=== PATIENT | female | born 1970 | race Caucasian/White ===

== ENCOUNTER 2016-06-13 08:05 | Emergency (ER) | payer OTHER ==
[~2016-06-13] VITALS: Ht 157.5 cm; Wt 109.1 kg
[~2016-06-13 08:05] MED LIST: CHOL400T PO; HYDR-3090 PO; HYDR25TA4 PO; ONDA4TAB6 PO; OXYC-474 PO; SULF1TAB7 PO; TAMS0.4C98 PO
[2016-06-13 08:10] VITALS: BP 211/94; PULSE 77; RESP 16; O2SAT 99
--- NOTE | 2016-06-13 08:28 | ED.REPORT ---
HPI-Chest Pain 40 and Over Date of Service Jun 13, 2016 ED Provider: Suman Maher MD The patient is a 46 year old female who presents to the ED due to chest pain onset at 0630 after receiving some bad news. Patient was terminated from her job she has worked for 20 years, began crying, and started experiencing chest pain. She was in the car and reclined her seat back to try to relieve her symptoms. She c/o associated SOB. The pain is constant at 7/10, it does not dissipate or decrease in severity. She has never experienced this type of discomfort previously. Pt is tearful and anxiously reports that she's, "been having a bad year." Her grandfather had CHF and her mother last month from heart disease. She denies edema and chest discomfort with exertion. Her blood pressure normally runs 160-175. Nursing Notes Stated Complaint: CHEST PAIN Chief Complaint: Chest Pain Nursing Notes Reviewed: Yes ([employer], meds not reconciled) Allergies: Coded Allergies: ciprofloxacin (Verified Allergy, Intermediate, Hives, 03/01/16) Penicillins (Verified Allergy, Unknown, UNKNOWN (HAS HAD BOTH ANCEF & KEFZOL IV IN PAST W/O PROBS), 03/01/16) Scheduled Captopril (Captopril) 25 Mg Tablet 25 MG PO BID Labetalol (Labetalol) 100 Mg Tablet 100 MG PO BID Potassium Citrate ER (Potassium Citrate ER) 5 Meq Tablet Unknown Dose PO BID TAKE WITH FOOD Scheduled PRN Lorazepam (Lorazepam) 1 Mg Tablet 1 MG PO BID PRN PRN For Anxiety General Time Seen by MD: 08:20 Chief Complaint Chest pain Hx Obtained From: Patient Arrived By: Walk-in Sudden in Onset?: Yes Onset Occurred: 1 - 4 hours ago Symptom Duration: Since onset Location: : Chest left Quality: Painful, Pressure Radiation: : Does not radiate Severity: Current: Pain level 7 out of 10 Associated with: Reports: Shortness of Breath Recent Healthcare: No recent doctor visit, No recent hospitalization Similar Sx Previous: No Past Medical History Past Medical History Notes: Admitted March 2016 for pyelonephritis When cystoscopy, stent removal, left uterus OP in-stent reinsertion 02/22/[address] Skelton Past Medical History Nephrolithiasis w/ s/p lithotripsy Non-functional right kidney due to previous stones Possible history of Hepatitis C Acute kidney injury with sepsis during admission March 2016, baseline creatinine 1.5 bumped to 3.56 with hyperkalemia, but resolved and returned to baseline Reports: Hypertension Reports: Urinary tract infection Past Surgical History C-sections x4 lithrotripsy (multiple), Ureteral stent Reports: Tubal ligation Family History Noncontributory Smoking History Former Smoker Social History Alcohol Use: "Social" Drug Use: Denies drug use Other Social History: Good social support, Local resident Occupation lives with partner, 02/04/2016 Ambulatory Status Independent Review of Systems Respiratory: Reports: Shortness of breath Cardiovascular: Reports: Chest pain, Denies: Edema Psychiatric: Reports: Anxiety, Stress Complete sys rev & neg: except as marked. Physical Exam Initial Vital Signs Vital Signs (First) Date Time Temp Pulse Resp B/P Pulse Ox O2 Delivery O2 Flow Rate FiO2 06/13/16 08:10 36.5 77 16 211/94 99 Room Air Initial VS: Reviewed, Vital signs abnormal (HTN) Head / Eyes: Atraumatic, Normocephalic, PERRL ENT: Mucous membranes moist, Conjunctiva normal, No scleral icterus Neck: Supple, Non-tender, Full range of motion Back: No CVA tenderness Extremities: Vascular intact, Neuro intact, No swelling, No tenderness Skin: Warm, Dry, No cyanosis Neurologic: Alert General/Constitutional: Awake Behavior: Positive: Anxious, Tearful Appearance / Presentation: Positive: Obese Respiratory / Chest: Atraumatic, Breath sounds NL, No respiratory distress Cardiovascular: Heart rate NL, Regular rhythm, Heart sounds NL Abdomen: Atraumatic, Soft, Non-tender Abnormal Mood/Affect: Positive: Anxious Interpretation & Diagnostics Lab Results Interpretation Result Diagram: 06/13/16 0845 06/13/16 0845 Test 06/13/16 08:45 06/13/16 10:15 White Blood Count 7.6th/mm3 (3.8-10.1) Red Blood Count 4.24mil/mm3 (3.90-5.20) Hemoglobin 9.5g/dL (12.0-15.6) Hematocrit 31.7% (35.0-46.0) Mean Corpuscular Volume 74.8fL (81-100) Mean Corpuscular Hemoglobin 22.4pg (27.0-35.0) Mean Corpuscular Hemoglobin Concent 30.0% (32.0-37.0) Red Cell Distribution Width 16.6% (12.3-15.4) Platelet Count 328bil/L (150-400) Neutrophils (%) (Auto) 50.0% (40-74) Lymphocytes (%) (Auto) 38.6% (14-46) Monocytes (%) (Auto) 6.2% (4-12) Eosinophils (%) (Auto) 4.2% (0-5) Basophils (%) (Auto) 0.7% (0-3) Sodium Level 141mEq/L (134-144) Potassium Level 4.3mEq/L (3.5-5.2) Chloride Level 106mEq/L (97-108) Carbon Dioxide Level 20mmol/L (18-29) Blood Urea Nitrogen 24mg/dL (6-24) Creatinine 0.84mg/dL (0.57-1.00) Estimat Glomerular Filtration Rate 104mL/min (>59) Glucose Level 95mg/dL (60-99) Calcium Level 9.0mg/dL (8.5-10.1) Magnesium Level 2.0mg/dL (1.6-2.6) Total Bilirubin 0.2mg/dL (0.0-1.2) Aspartate Amino Transf (AST/SGOT) 40U/L (0-50) Alanine Aminotransferase (ALT/SGPT) 37U/L (0-32) Alkaline Phosphatase 83U/L (25-150) Total Protein 7.0g/dL (6.4-8.4) Albumin 3.6g/dL (3.4-5.0) Troponin T 0.010ug/L (0.0-0.011) Lab Results Interpretation: CBC normal CMP normal Troponin negative ECG Interpretation ECG Interpretation: ventricular premature complex poor R-wave regression anteriorly Time: 08:24 Interpreted by: ED physician Normal ECG Interpretation: Normal ECG w/ rate of... (66) X-Ray Chest Interpretation Chest Xray Interpretation: IMPRESSION: No acute cardiopulmonary disease process Dictated by: Emily Baez MD, PhD on 06/13/2016 at 10:07 Approved by: Emily Baez MD, PhD on 06/13/2016 at 10:07 View: Portable Interpretation / Wet Read by: Interpret - Radiologist Re-Eval/Medical Decision Med Decision/Clinical Course This is a 46-year-old female who presents the emergency department for an episode of chest discomfort that started after being told she had been fired from her 20-year-old job. In tears and uncomfortable. She has a history of chronic hypertension reports her blood pressures have been running in the 160s to 170s so she was recently started on blood pressure medicine, she is hypertensive on initial evaluation. He has no previous history of heart disease. She is anxious and tearful, but otherwise has a normal physical exam. Her EKG is without findings of acute ischemia or dysrhythmia. Work and it initial troponin negative. His were obtained and apart because of the severe hypertension but this resolved she felt better. She did receive a dose of lorazepam which helped. Overall clinical presentation is low risk for an acute coronary syndrome. Indications serial enzymes or additional testing are warranted at this time. The patient's high blood pressures improved, but it was explained she will continue need to follow with her PCP to determine if additional changes to her regimen may be warranted. The patient is being discharged in improved condition , I have written for #10 lorazepam for when necessary use. Routine precautions and discharge instructions reviewed. Source of Hx: Old records Time of Eval: 11:28 Patient Status: Condition improved, Pain improved Re-Evaluation/Progress Note: Pt rechecked. Imaging results are completely normal. Plan for discharge. Will send home with pain medication. Differential Diagnosis: Positive: Chest pain, acute, Negative: Acute coronary syndrome, Acute myocardial infarct, Dysrhythmia, Esophageal rupture, Gun shot wound chest, Pleurisy, Pneumonia, Pneumothorax, Pulmonary edema, Pulmonary embolism, Rib fracture, Stab wound chest Counseled Regarding: Diagnosis, Lab results, Need for follow-up, When/why to return to ED Discharge & Departure Primary Impression: Chest pain Chest pain type: unspecified Qualified Code: R07.9 - Chest pain, unspecified Additional Impressions: Acute stress reaction Elevated blood pressure Disposition: Home Discharge Condition All VS Reviewed: Yes Condition: Stable Additional Instructions: 1. Your tests in the emergency department were normal, and do not reveal any markers of a heart attack or other dangerous condition. 2. Activities as tolerated. 3. Continue to monitor your blood pressure home and work with her primary care physician. Your initial blood pressure was very elevated when he first arrived , but has improved-but still needs to be followed. 4. If needed you can take lorazepam 1 mg 1 tab up to twice a day. Note: This medication causes drowsiness-no driving or operating machinery for at least 4 hours after taking 5. Return if new or worsening symptoms Referrals: Stanford Jordan DO (PCP) Scribe Attestation Portion of this note were transcribed by Nevin Ocampo. I, Dr. Maher, personally performed the history, physical exam, and medical decision-making: I reviewed and confirmed the accuracy for the information in the transcribed note. Signed by: cindy Odell, 06/13/16 1150 copies to: Stanford Jordan Matthew F MD Jun 13, 2016 08:28 Nevin Ocampo Jun 13, 2016 08:35
[2016-06-13] MEDS ORDERED: CAPT25TA3 PO (08:43)
[2016-06-13] MEDS ORDERED: POTA5TAB2 PO (08:43)
[2016-06-13] MEDS ORDERED: LABE100T4 PO (08:43)
[2016-06-13 08:53] LABS: BASOPHILS % (AUTO) 0.7 % (0-3); EOSINOPHILS % (AUTO) 4.2 % (0-5); MONOCYTES % (AUTO) 6.2 % (4-12); Mean Corpuscular Hemoglobin 22.4 pg (27.0-35.0); Mean Corpuscular Volume 74.8 fL (81-100); Platelet Count 328 bil/L (150-400)
[2016-06-13 09:25] VITALS: BP 177/63; PULSE 68; RESP 19; O2SAT 100
[2016-06-13 09:25] LABS: TROPONIN T 0.01 ug/L (0.0-0.011)
--- NOTE | 2016-06-13 10:09 | DRSVH ---
PROCEDURE: X-RAY CHEST ONE VIEW, PORTABLE ([id number]) INDICATIONS: CHEST PAIN TECHNIQUE: One view of the chest was acquired. COMPARISON: [facility], , CHEST 1VW (PORTABLE), 09/18/2012, 10:07. FINDINGS: Surgical changes and devices: None. Lungs and pleura: No pleural effusions or pneumothorax. Lungs are clear. Mediastinum: Mediastinal contours appear normal. Heart size is normal. Bones and chest wall: No suspicious bony lesions. Overlying soft tissues appear unremarkable. IMPRESSION: No acute cardiopulmonary disease process. Dictated by: Emily Baez MD, PhD on 06/13/2016 at 10:07 Approved by: Emily Baez MD, PhD on 06/13/2016 at 10:07
[2016-06-13] MEDS ORDERED: LidocaineVisc 2%:Antacid 1:1 10 mL Syringe PO ONE (10:10)
[2016-06-13] MEDS ORDERED: Alum-Mag Hydrox-Simeth 30 mL Suspension ONE (10:15)
[2016-06-13] MEDS ORDERED: LORA1TAB PO (11:36)
[2016-06-13 11:47] VITALS: BP 160/59; PULSE 74; RESP 18; O2SAT 97
== END 2016-06-13 11:54 | disposition home or self-care (01) ==
LOC: SED 08:05
DX: R07.9 Chest pain, unspecified (principal); F43.0 Acute stress reaction; I10 Essential (primary) hypertension; R06.02 Shortness of breath; Z87.440 Personal history of urinary (tract) infections; Z87.891 Personal history of nicotine dependence; Z88.0 Allergy status to penicillin; Z88.1 Allergy status to other antibiotic agents
CPT/HCPCS: 36415; 71010; 80053; 81025; 83735; 84484; 85025; 93005; 96374; 99285; J2060

== ENCOUNTER 2016-09-05 07:45 | Emergency (ER) | payer OTHER ==
[~2016-09-05] VITALS: Ht 158.8 cm; Wt 108.2 kg
[~2016-09-05 07:45] MED LIST changes: +CAPT25TA3 PO; -CHOL400T PO; -HYDR-3090 PO; -HYDR25TA4 PO; +LABE100T4 PO; +LORA1TAB PO; -ONDA4TAB6 PO; -OXYC-474 PO; +POTA5TAB2 PO; -SULF1TAB7 PO; -TAMS0.4C98 PO
[2016-09-05 07:47] VITALS: BP 179/83; PULSE 74; RESP 15; O2SAT 99
--- NOTE | 2016-09-05 07:55 | ED.REPORT ---
HPI-Chest Pain 40 and Over Date of Service Sep 05, 2016 ED Provider: Giana Davidson Patient is a 46 year old female with a hx of HTN who presents to the ED complaining of chest pressure that has gradually gotten worse since onset at 2330 last night while she was at work. Associated symptoms include waves of dizziness, headache (onset 3 days ago, resolved) and SOB. Her pain is currently a 5/10 and radiates to her throat. She denies nausea, vomiting, diaphoresis, numbness, weakness, abdominal pain, dysuria, edema, or any other symptoms. She had similar symptoms in May when she had an anxiety attack but reports that episode was more painful than pressure. She has not taken her labetalol yet this morning. She reports that she was recently diagnosed with "a little bit of an enlarged heart". Patient is having symptoms with PVC's. Nursing Notes Stated Complaint: DIZZY,SOB Chief Complaint: Chest Pain-Non Cardiac Nature Nursing Notes Reviewed: Yes Allergies: Coded Allergies: ciprofloxacin (Verified Allergy, Intermediate, Hives, 03/01/16) Penicillins (Verified Allergy, Unknown, UNKNOWN (HAS HAD BOTH ANCEF & KEFZOL IV IN PAST W/O PROBS), 03/01/16) Scheduled Captopril (Captopril) 25 Mg Tablet 25 MG PO BID Labetalol (Labetalol) 100 Mg Tablet 100 MG PO BID Potassium Citrate ER (Potassium Citrate ER) 5 Meq Tablet 5 MEQ PO BID TAKE WITH FOOD General Time Seen by MD: 07:55 Chief Complaint Chest pressure Hx Obtained From: Patient Arrived By: Walk-in Sudden in Onset?: Yes Onset Occurred: 5 - 8 hours ago Symptom Duration: Since onset Risk Factors )( CAD Risk Stratification HypertensionNo Smoking Risk factors reviewed )( TAD Risk Stratification HypertensionNo Risk factors reviewed )( PE Risk Stratification No , No , No Previous PE Risk factors reviewed Past Medical History Past Medical History Notes: Admitted March 2016 for pyelonephritis When cystoscopy, stent removal, left uterus OP in-stent reinsertion 02/22/[address] Skelton Past Medical History Prediabetic Nephrolithiasis w/ s/p lithotripsy Non-functional right kidney due to previous stones Possible history of Hepatitis C Acute kidney injury with sepsis during admission March 2016, baseline creatinine 1.5 bumped to 3.56 with hyperkalemia, but resolved and returned to baseline Reports: Hypertension Reports: Urinary tract infection Past Surgical History C-sections x4 lithrotripsy (multiple), Ureteral stent Reports: Tubal ligation Family History Noncontributory Smoking History Former Smoker Social History Alcohol Use: "Social" Drug Use: Denies drug use Other Social History: Good social support, Local resident Occupation lives with partner, 02/04/2016 Ambulatory Status Independent Review of Systems Respiratory: Reports: Shortness of breath Cardiovascular: Reports: Chest pain (with radiation to throat ), Denies: Edema GI: Denies: Abdominal pain, Nausea, Vomiting Skin: Denies Diaphoresis Neurologic: Reports: Dizziness, Denies: Numbness, Weakness Complete sys rev & neg: except as marked. Female: Denies: Dysuria Physical Exam Initial Vital Signs Vital Signs (First) Date Time Temp Pulse Resp B/P Pulse Ox O2 Delivery O2 Flow Rate FiO2 09/05/16 07:47 36.4 74 15 179/83 99 Room Air Initial VS: Reviewed, Vital signs abnormal Head / Eyes: Atraumatic, Normocephalic Neck: Full range of motion Skin: Warm, Dry Neurologic: Alert, Oriented, Nonfocal Psychiatric: Mood/affect normal, Behavior normal, Normal thought content General/Constitutional: Awake, Alert, Well developed Respiratory / Chest: Breath sounds NL, Breath sounds = bilat, No respiratory distress Cardiovascular: Heart rate NL, Regular rhythm Symptomatic with PVC's Abdomen: Soft, Non-tender Lower Extremity / Pelvis / MS: Non-tender, No edema Interpretation & Diagnostics Lab Results Interpretation Result Diagram: 09/05/16 0810 09/05/16 0810 Test 09/05/16 08:10 09/05/16 10:15 White Blood Count 8.6th/mm3 (3.8-10.1) Red Blood Count 3.97mil/mm3 (3.90-5.20) Hemoglobin 8.2g/dL (12.0-15.6) Hematocrit 28.0% (35.0-46.0) Mean Corpuscular Volume 70.5fL (81-100) Mean Corpuscular Hemoglobin 20.7pg (27.0-35.0) Mean Corpuscular Hemoglobin Concent 29.3% (32.0-37.0) Red Cell Distribution Width 18.8% (12.3-15.4) Platelet Count 368bil/L (150-400) Neutrophils (%) (Auto) 51.3% (40-74) Lymphocytes (%) (Auto) 34.0% (14-46) Monocytes (%) (Auto) 7.4% (4-12) Eosinophils (%) (Auto) 6.3% (0-5) Basophils (%) (Auto) 0.8% (0-3) Sodium Level 138mEq/L (134-144) Potassium Level 4.2mEq/L (3.5-5.2) Chloride Level 103mEq/L (97-108) Carbon Dioxide Level 21mmol/L (18-29) Blood Urea Nitrogen 24mg/dL (6-24) Creatinine 0.97mg/dL (0.57-1.00) Estimat Glomerular Filtration Rate 88mL/min (>59) Glucose Level 116mg/dL (60-99) Calcium Level 9.2mg/dL (8.5-10.1) Magnesium Level 1.9mg/dL (1.6-2.6) Total Bilirubin 0.3mg/dL (0.0-1.2) Aspartate Amino Transf (AST/SGOT) 61U/L (0-50) Alanine Aminotransferase (ALT/SGPT) 53U/L (0-32) Alkaline Phosphatase 90U/L (25-150) Pro-B-Type Natriuretic Peptide 255.7pg/mL (0-249) Total Protein 7.4g/dL (6.4-8.4) Albumin 3.8g/dL (3.4-5.0) Troponin T 0.010ug/L (0.0-0.011) ECG Interpretation ECG Interpretation: Sinus rate 72 normal intervals and axis poor R wave progression no ST,T changes similar to prior june 13 2016 Time: 08:04 Interpreted by: ED physician X-Ray Chest Interpretation Chest Xray Interpretation: IMPRESSION: Negative chest. No acute cardiopulmonary process is evident. Dictated by: Hola Jefferson M.D. on 09/05/2016 at 8:06 Approved by: Hola Jefferson M.D. on 09/05/2016 at 8:06 View: Portable, 1 view Interpretation / Wet Read by: Interpret - Radiologist Re-Eval/Medical Decision Med Decision/Clinical Course The patient presents with chest pain that started at 10 PM, her other complaint was dizziness. She stated she was feeling dizzy when she had some bigeminy during her examination and stated there was were the symptoms she was feeling. As far as her chest pain has been constant and gradually got worse. Given duration of pain with no acute EKG findings and normal troponins she is ruled out for CA. The patient was feeling improved during her stay here was discharged home. Additional differential diagnoses considered were pneumonia, pulmonary embolus, esophageal spasm, bronchospasm, and pancreatitis. The patient was hypertensive upon arrival here however she had not taken her normal blood pressure medication. Her blood pressure did improve while here. Time of Eval: 09:41 Patient Status: Condition improved Re-Evaluation/Progress Note: Rechecked patient. She is feeling better. Time of Eval: 11:29 Patient Status: Condition improved Re-Evaluation/Progress Note: Rechecked pt who is much better. Discussed plan for discharge. Patient understands and agrees with plan. All questions addressed at this time. Counseled Regarding: Diagnosis, Lab results, Need for follow-up, When/why to return to ED Discharge & Departure Primary Impression: Chest pain Chest pain type: unspecified Qualified Code: R07.9 - Chest pain, unspecified Additional Impressions: PVCs (premature ventricular contractions) Anemia Anemia type: unspecified type Qualified Code: D64.9 - Anemia, unspecified Disposition: Home Discharge Condition All VS Reviewed: Yes Condition: Stable Additional Instructions: Thank you for entrusting us with your care. It is unclear why you are having PVC's but there are no concerning findings at this time. Testing indicates that you have not had a heart attack. You should follow up with your primary doctor for your anemia. If your symptoms continue. you should have a stress test. Return to the emergency department if you experience increasing SOB, increasing pain, fever, or any other new or concerning symptoms. Referrals: Stanford Jordan DO (PCP) Scribe Attestation Portions of this note were transcribed by Sabina Espinoza. I, Dr. Davidson personally performed the history, physical exam and medical decision-making; I reviewed and confirmed the accuracy of the information in the transcribed note. Signed by: Sabina Espinoza 09/03/16, 1129 copies to: Stanford Jordan Jena M MD Sep 05, 2016 07:55 SABINA ESPINOZA Sep 05, 2016 08:06
[2016-09-05] MEDS ORDERED: 0.9% Sodium Chloride 1,000 ML IV ONE (08:20)
[2016-09-05 08:27] LABS: BASOPHILS % (AUTO) 0.8 % (0-3); EOSINOPHILS % (AUTO) 6.3 % (0-5); MONOCYTES % (AUTO) 7.4 % (4-12); Mean Corpuscular Hemoglobin 20.7 pg (27.0-35.0); Mean Corpuscular Volume 70.5 fL (81-100); NEUTROPHILS % (AUTO) 51.3 % (40-74); Platelet Count 368 bil/L (150-400)
[2016-09-05 08:52] LABS: TROPONIN T 0.01 ug/L (0.0-0.011)
[2016-09-05 09:03] LABS: Magnesium 1.9 mg/dL (1.6-2.6)
--- NOTE | 2016-09-05 09:08 | DRSVH ---
PROCEDURE: X-RAY CHEST ONE VIEW, PORTABLE ([id number]) INDICATIONS: chest pain TECHNIQUE: One view of the chest was acquired. COMPARISON: [facility], CR, XR CHEST 1VW (PORTABLE), 06/13/2016, 9:02. FINDINGS: Surgical changes and devices: None. Lungs and pleura: No pleural effusions or pneumothorax. Lungs are clear. Mediastinum: Mediastinal contours appear normal. Heart size is normal. Bones and chest wall: No suspicious bony lesions. Overlying soft tissues appear unremarkable. IMPRESSION: Negative chest. No acute cardiopulmonary process is evident. Dictated by: Hola Jefferson M.D. on 09/05/2016 at 8:06 Approved by: Hola Jefferson M.D. on 09/05/2016 at 8:06
[2016-09-05 09:48] VITALS: BP 152/54; PULSE 70; RESP 16; O2SAT 99
[2016-09-05 11:27] VITALS: BP 150/58; PULSE 68; RESP 16; O2SAT 97
[2016-09-05 11:46] VITALS: BP 150/58; PULSE 68; RESP 16; O2SAT 97
== END 2016-09-05 11:48 | disposition home or self-care (01) ==
LOC: SED 07:45
DX: R07.9 Chest pain, unspecified (principal); I49.3 Ventricular premature depolarization; D64.9 Anemia, unspecified; I10 Essential (primary) hypertension; R73.09 Other abnormal glucose; Z87.442 Personal history of urinary calculi; Z87.440 Personal history of urinary (tract) infections; Z87.891 Personal history of nicotine dependence; Z88.0 Allergy status to penicillin; Z88.1 Allergy status to other antibiotic agents
CPT/HCPCS: 36415; 71010; 80053; 83735; 83880; 84484; 85025; 90791; 93005; 96360; 99285; J7030

== ENCOUNTER 2016-12-16 21:02 | Emergency (ER) | payer OTHER ==
[~2016-12-16] VITALS: Ht 160 cm; Wt 109.5 kg
[~2016-12-16 21:02] MED LIST changes: -LORA1TAB PO
[2016-12-16 21:17] VITALS: BP 187/76; PULSE 72; RESP 16; O2SAT 100
--- NOTE | 2016-12-16 22:13 | ED.REPORT ---
HPI-General Illness Date of Service Dec 16, 2016 ED Provider: Dr. Narciso Velasco MD The patient is a 46 year female with a hx of nephrolithiasis, pyelonephritis, multiple previous lithotripsies, HTN, prediabetes, and right-sided kidney surgery presenting to the ED complaining of aching, left flank pain onset 10:00 this morning. Her current pain is similar to the pain she experienced during previous kidney stones, and rates it as a 6/10 severity with it being 9/10 at its worst. She claims that the pain radiates inferiorly during urination. She denies chest pain, neck pain, hematuria, dysuria, SOB, nausea, chills, fever, diarrhea, headache, nasal congestion, vaginal discharge, dizziness, skin rash, or vision changes. Nursing Notes Stated Complaint: LEFT KIDNEY STONE Chief Complaint: Female Abdominal Pain Nursing Notes Reviewed: Yes Allergies: Coded Allergies: ciprofloxacin (Verified Allergy, Intermediate, Hives, 12/16/16) Penicillins (Verified Allergy, Unknown, UNKNOWN (HAS HAD BOTH ANCEF & KEFZOL IV IN PAST W/O PROBS), 12/16/16) Scheduled Captopril (Captopril) 25 Mg Tablet 25 MG PO BID Labetalol (Labetalol) 100 Mg Tablet 100 MG PO BID Potassium Citrate ER (Potassium Citrate ER) 5 Meq Tablet 5 MEQ PO BID TAKE WITH FOOD Sulfamethoxazole/Trimeth 800-160 mg (Bactrim DS) 1 Each Tablet 1 TABLET PO BID General Time Seen by MD: 22:12 Chief Complaint Back pain (left flank pain) Hx Obtained From: Patient Arrived By: Walk-in Sudden in Onset?: Yes Onset Occurred: 13 - 16 hours ago Symptom Duration: Since onset Location: : Back (left flank) Quality: Aching Severity: Current: Pain level 6 out of 10 Severity: Maximum: Pain level 9 out of 10 Associated with: Denies: Chest pain, Dizziness, Fever, Headache, Nausea, Rash, Shortness of breath, Vision change Pertinent Negative: Pt denies other symptoms Recent Healthcare: No recent hospitalization, Recent doctor visit Similar Sx Previous: Yes Past Medical History Past Medical History Notes: Admitted March 2016 for pyelonephritis When cystoscopy, stent removal, left uterus OP in-stent reinsertion 02/22/[address] Skelton Past Medical History Prediabetic Nephrolithiasis w/ s/p lithotripsy Non-functional right kidney due to previous stones Possible history of Hepatitis C Acute kidney injury with sepsis during admission March 2016 Reports: Hypertension Reports: Urinary tract infection Past Surgical History C-sections x4 lithrotripsy (multiple), Ureteral stent Reports: Tubal ligation Family History Noncontributory Smoking History Former Smoker Social History Alcohol Use: "Social" Drug Use: Denies drug use Other Social History: Good social support, Local resident Occupation lives with partner, 02/04/2016 Ambulatory Status Independent Review of Systems Full Review of Systems Constitutional: Denies: Chills, Fever Eyes: Denies: Visual loss bilateral Ears / Nose / Throat: Denies: Nasal congestion Respiratory: Denies: Shortness of breath Cardiovascular: Denies: Chest pain GI: Denies: Diarrhea, Nausea Female: Denies: Hematuria, Vaginal discharge Musculoskeletal: Reports: Back pain (left flank) Skin: Denies Rash Neurologic: Denies: Dizziness, Headache Complete sys rev & neg: except as marked. Physical Exam Nursing note and vitals reviewed. Constitutional: Well-developed, well-nourished. Not diaphoretic. Head: Normocephalic and atraumatic. Mouth/Throat: Oropharynx is clear and moist. No oropharyngeal exudate. Eyes: EOM are normal. Pupils are equal, round, and reactive to light. Neck: Supple, no tracheal deviation. Cardiovascular: Normal rate, regular rhythm. Equal and intact distal pulses throughout. Pulmonary/Chest: Effort normal and breath sounds normal. No respiratory distress. Abdominal: Soft. No distension. There is no tenderness, rebound, or guarding. Bowel sounds present. Musculoskeletal: Range of motion grossly intact, moving all extremities. Left flank tenderness. Neurological: AOx3. Grossly nonfocal exam. Strength and sensation intact and equal to bilateral upper and lower extremities. Skin: Warm and dry, no rashes or pallor appreciated. Psychiatric: Appropriate mood and affect. Behavior appears normal. Vital Signs Vital Signs Date Time Temp Pulse Resp B/P Pulse Ox O2 Delivery O2 Flow Rate FiO2 12/17/16 00:29 36.5 60 21 178/78 97 Room Air 12/16/16 21:17 37.0 72 16 187/76 100 Room Air Interpretation & Diagnostics Lab Results Interpretation Result Diagram: 12/16/16222412/16/162224 Test 12/16/16 22:00 9/17/17 22:21 12/16/16 22:25 12/16/16 22:57 Hold Urine Received (Received) Urine Color Yellow (YELLOW) Urine Appearance Hazy (CLEAR,HAZY) Urine pH 7.0 (5.0-8.0) Urine Specific [place] 1.020 (1.003-1.035) Urine Protein 30mg/dL (NEG,TRACE) Urine Glucose (UA) Negativemg/dL (NEGATIVE) Urine Ketones Negativemg/dL (NEGATIVE) Urine Occult Blood Negative (NEGATIVE) Urine Nitrite Negative (NEGATIVE) Urine Bilirubin Negative (NEGATIVE) Urine Urobilinogen Normalmg/dL (NORMAL) Urine Leukocyte Esterase Negative (NEGATIVE) Urine RBC 0-2/hpf (0-2) Urine WBC 11-50/hpf (0-5) Urine Epithelial Cells Few/hpf (NONE-MOD) Urine Crystals None seen (NONE SEEN) Urine Bacteria Few/hpf (NONE-FEW) Urine Hyaline Casts None/lpf (NONE) Urine Granular Casts None seen (NONE SEEN) Urine Waxy Casts None seen (NONE SEEN) Urine Red Blood Cell Casts None seen (NONE SEEN) Urine White Blood Cell Casts None seen (NONE SEEN) Urine Mucus None seen (None Seen) Urine Trichomonas None seen (NONE SEEN) Urine Yeast None (NONE SEEN) Urinalysis Comment None Urine Culture Reflexed Indicated White Blood Count 8.3th/mm3 (3.8-10.1) Red Blood Count 5.01mil/mm3 (3.90-5.20) Hemoglobin 12.1g/dL (12.0-15.6) Hematocrit 39.0% (35.0-46.0) Mean Corpuscular Volume 77.8fL (81-100) Mean Corpuscular Hemoglobin 24.2pg (27.0-35.0) Mean Corpuscular Hemoglobin Concent 31.0% (32.0-37.0) Red Cell Distribution Width 27.4% (12.3-15.4) Platelet Count 219bil/L (150-400) Neutrophils (%) (Auto) 48.1% (40-74) Lymphocytes (%) (Auto) 36.5% (14-46) Monocytes (%) (Auto) 10.1% (4-12) Eosinophils (%) (Auto) 4.4% (0-5) Basophils (%) (Auto) 0.7% (0-3) Hematology Comments Prothrombin Time 9.4sec (8.1-12.5) Prothromb Time International Ratio 0.88ratio Sodium Level 140mEq/L (134-144) Potassium Level 3.9mEq/L (3.5-5.2) Chloride Level 104mEq/L (97-108) Carbon Dioxide Level 22mmol/L (18-29) Blood Urea Nitrogen 23mg/dL (6-24) Creatinine 1.00mg/dL (0.57-1.00) Estimat Glomerular Filtration Rate 85mL/min (>59) Glucose Level 88mg/dL (60-99) Calcium Level 9.5mg/dL (8.5-10.1) Magnesium Level 1.9mg/dL (1.6-2.6) Total Bilirubin 0.2mg/dL (0.0-1.2) Aspartate Amino Transf (AST/SGOT) 30U/L (0-50) Alanine Aminotransferase (ALT/SGPT) 31U/L (0-32) Alkaline Phosphatase 70U/L (25-150) Total Protein 7.4g/dL (6.4-8.4) Albumin 3.9g/dL (3.4-5.0) Lipase 57U/L (13-60) Lactic Acid Level 0.5mmol/L (0.4-2.0) CT Abd / Pelvis Interpretation IMPRESSION: Bilateral renal stones ranging from 3-5 mm in size. No hydronephrosis. This report was transmitted to the emergency room at 12/16/2016 - 10:51:06 PM PDT. Study type: Abdominal CT no contrast Interpretation / Wet Read by: Interpret - Radiologist Re-Eval/Medical Decision Med Decision/Clinical Course 46-year-old female presenting to the ED for evaluation of left flank pain. Pain feels similar to when she has had pyelonephritis in the past. No lower abdominal pain or tenderness to palpation, no abdominal tenderness otherwise, no rebound or guarding. The reason to suggest that she has an acute surgical abdomen, small bowel obstruction, or appendicitis. CBC and CMP grossly within normal limits. Lactic acid of 0.5. A CT scan was performed and does not demonstrate any ureterolithiasis, however does show bilateral renal stones ranging from 3-5 mm in size without evidence of hydronephrosis. Urinalysis demonstrates 11-50 white blood cells with no red blood cells. This may represent a mild urinary tract infection, and in the setting of her left flank pain and known history, I suspect that this may be pyelonephritis. We discussed inpatient versus outpatient treatment for this, and the patient would prefer to be discharged home with a perception for antibiotics and can follow- up with her PCP tomorrow. This seems reasonable given reassuring exam, workup here, no hydronephrosis, etc. Vital signs here reassuring. Plan discharge home with careful return precautions, follow-up tomorrow. Patient agreeable to the plan as stated, no further questions. Time of Eval: 00:05 Re-Evaluation/Progress Note: Patient rechecked. Discussed plan to discharge. Patient understands and agrees with plan. All questions addressed at this time. Counseled Regarding: Diagnosis, Lab results, Need for follow-up, When/why to return to ED Discharge & Departure Primary Impression: Nephrolithiasis Additional Impressions: UTI (urinary tract infection) Urinary tract infection type: site unspecified Hematuria presence: without hematuria Qualified Code: N39.0 - Urinary tract infection, site not specified Pyelonephritis Disposition: Home Discharge Condition All VS Reviewed: Yes Condition: Improved Patient Instructions: Kidney Infection (ED), Kidney Stones (ED), Urinary Tract Infection in Women (ED) Additional Instructions: You have been diagnosed with a urinary tract infection, kidney stones, and pyelonephritis. Please take the medication as prescribed. Also, please follow up with your regular doctor tomorrow to be reassessed and get in touch with urology. Return to the ED immediately if you develop fever, chills, worsening abdominal pain, lightheadedness, chest pain, or if there is anything else of concern to you. Referrals: NOPCP (PCP) Usman Carey MD Attestation Portions of this note were transcribed by Gypsy Lacey and Lexx Barreto. I, Dr. Velasco personally performed the history, physical exam and medical decision-making; I reviewed and confirmed the accuracy of the information in the transcribed note. Signed by: Dulce Hutson, 12/16/2016 Signed by: Dulce Sims, 12/16/16. copies to: Paco Carey MD, William B MD Dec 16, 2016 22:13 Dec 16, 2016 23:37 GYPSY LACEY Dec 17, 2016 00:28
[2016-12-16] MEDS ORDERED: 0.9% Sodium Chloride 1,000 ML IV ONE (22:17)
[2016-12-16] MEDS ORDERED: Ketorolac 15 mg/mL Inj IVPUSH ONE (22:20)
[2016-12-16] MEDS ORDERED: Ondansetron 2 mg/mL 2 mL Inj IVPUSH PRN (22:20)
[2016-12-16] MEDS ORDERED: HYDROmorphone 0.5 mg/0.5 mL iSecure Syringe IVPUSH PRN (22:20)
[2016-12-16 22:31] LABS: Mean Corpuscular Hemoglobin 24.2 pg (27.0-35.0); Mean Corpuscular Volume 77.8 fL (81-100)
[2016-12-16 22:38] LABS: APPEARANCE,URINE HAZY (CLEAR,HAZY); COLOR,URINE YELLOW (YELLOW)
[2016-12-16 22:39] LABS: OCCULT BLOOD,URINE NEGATIVE (NEGATIVE); UROBILINOGEN,URINE NORMAL (NORMAL)
[2016-12-16 22:53] LABS: INR 0.88 ratio
[2016-12-16 23:01] LABS: Magnesium 1.9 mg/dL (1.6-2.6)
[2016-12-16 23:03] LABS: BASOPHILS % (AUTO) 0.7 % (0-3); EOSINOPHILS % (AUTO) 4.4 % (0-5); MONOCYTES % (AUTO) 10.1 % (4-12); NEUTROPHILS % (AUTO) 48.1 % (40-74); Platelet Count 219 bil/L (150-400)
[2016-12-16] MEDS ORDERED: SULF1TAB7 PO (23:41)
[2016-12-17 00:29] VITALS: BP 178/78; PULSE 60; RESP 21; O2SAT 97
--- NOTE | 2016-12-17 07:48 | DRSVH ---
PROCEDURE: CT KUB ([id number]) INDICATIONS: abd pain, flank pain; hx of stones TECHNIQUE: Noncontrast 5 mm thick sections acquired from the diaphragms to the symphysis. 5 mm thick coronal an d sagittal reformats were then performed. For radiation dose reduction, the following was used: aut omated exposure control, adjustment of mA and/or kV according to patient size. COMPARISON: [facility], CT, CT KUB, 03/03/2016, 20:05. [facility], CT, CT K UB, 02/13/2016, 11:08. [facility], CT, CT KUB, 01/09/2016, 21:07. [facility], CT, CT KUB, 06/08/2015, 3:14. FINDINGS: Image quality: Excellent. Lung bases: Lung bases are clear. Heart size is normal. Urinary system: Nonobstructing bilateral renal calculi measuring up to 5 mm. No obstructing renal or ureteral calculi. No noncontrast evidence of solid renal mass. Bladder wall thickness is normal; no calcified bladder stones. Other solid organs: There is linear density in the gallbladder most consistent with milk of calcium o r very tiny calculi. No CT evidence of acute cholecystitis. The liver, pancreas, spleen, and adrenal glands are normal. Uterus is present. Peritoneum and bowel: Unenhanced bowel loops demonstrate normal wall thickness and caliber. No free fluid or air. Nodes and vessels: No retroperitoneal or mesenteric adenopathy by size criteria. Aorta and inferior vena cava are normal in caliber. Abdominal wall: No ventral hernias. Pelvis: No free pelvic fluid. No inguinal hernias or adenopathy. Bones: No suspicious bony lesions. No vertebral body compression fractures. IMPRESSION: 1. Multiple uncertain bilateral renal calculi measuring up to 5 mm. No obstructing renal or ureteral calculus. No hydronephrosis or ureterectasis. 2. Multiple nonobstructing bilateral renal calculi measuring up to 14 mm. 3. There are no discrepancies with the preliminary report. Dictated by: Nabil Morrow M.D. on 12/17/2016 at 7:35 Approved by: Nabil Morrow M.D. on 12/17/2016 at 7:46
== END 2016-12-17 00:31 | disposition home or self-care (01) ==
LOC: SED 21:02
DX: N39.0 Urinary tract infection, site not specified (principal); N12 Tubulo-interstitial nephritis, not specified as acute or chronic; N20.0 Calculus of kidney; I10 Essential (primary) hypertension; R73.03 Prediabetes; Z87.440 Personal history of urinary (tract) infections; Z96.0 Presence of urogenital implants; Z87.891 Personal history of nicotine dependence; Z88.0 Allergy status to penicillin; Z88.1 Allergy status to other antibiotic agents
CPT/HCPCS: 36415; 74176; 80053; 81000; 81025; 83605; 83690; 83735; 85025; 85610; 87086; 96361; 96374; 96375; 99285; J1170; J1885; J2405; J7030

== ENCOUNTER 2016-12-23 03:05 | Emergency (ER) | payer OTHER ==
[~2016-12-23] VITALS: Ht 160 cm; Wt 109.5 kg
[~2016-12-23 03:05] MED LIST changes: +SULF1TAB7 PO
[2016-12-23 03:10] VITALS: BP 180/85; PULSE 62; RESP 16; O2SAT 99
[2016-12-23 03:49] LABS: BASOPHILS % (AUTO) 0.9 % (0-3); EOSINOPHILS % (AUTO) 4.5 % (0-5); MONOCYTES % (AUTO) 8.8 % (4-12); Mean Corpuscular Volume 77.6 fL (81-100); NEUTROPHILS % (AUTO) 49.9 % (40-74); Platelet Count 308 bil/L (150-400)
[2016-12-23 04:15] LABS: Magnesium 1.9 mg/dL (1.6-2.6)
--- NOTE | 2016-12-23 04:30 | ED.REPORT ---
HPI-General Illness Date of Service Dec 23, 2016 ED Provider: Binh Winkler MD The pt is a 46 y/o female w/ a hx of nephrolithiasis, HTN, and UTIs presenting to the ED c/o L flank pain. Denies double vision, blurred vision, sore throat, chest pain, cough, vomiting, diarrhea, vaginal discharge, vaginal bleeding, lower extremity edema, or rash. She has taken Alleve for the pain. The pt was seen by Dr. Velasco 1 week ago for nephrolithiasis but was unable to hop picker her rx of Bactrim. Nursing Notes Stated Complaint: LOWER BACK PAIN Chief Complaint: L flank pain Nursing Notes Reviewed: Yes Allergies: Coded Allergies: ciprofloxacin (Verified Allergy, Intermediate, Hives, 12/16/16) Penicillins (Verified Allergy, Unknown, UNKNOWN (HAS HAD BOTH ANCEF & KEFZOL IV IN PAST W/O PROBS), 12/16/16) Scheduled Captopril (Captopril) 25 Mg Tablet 25 MG PO BID Labetalol (Labetalol) 100 Mg Tablet 100 MG PO BID Potassium Citrate ER (Potassium Citrate ER) 5 Meq Tablet 5 MEQ PO BID TAKE WITH FOOD Sulfamethoxazole/Trimeth 800-160 mg (Bactrim DS) 1 Each Tablet 1 TABLET PO BID General Time Seen by MD: 04:30 Chief Complaint Other (L flank pain ) Hx Obtained From: Patient Arrived By: Walk-in Sudden in Onset?: Yes Onset Occurred: 1 week ago Symptom Duration: Since onset Recent Healthcare: No recent hospitalization, Recent doctor visit Similar Sx Previous: Yes Past Medical History Past Medical History Notes: Admitted March 2016 for pyelonephritis When cystoscopy, stent removal, left uterus OP in-stent reinsertion 02/22/[address] Skelton Past Medical History Prediabetic Nephrolithiasis w/ s/p lithotripsy Non-functional right kidney due to previous stones Possible history of Hepatitis C Acute kidney injury with sepsis during admission March 2016 Reports: Hypertension Reports: Urinary tract infection Past Surgical History C-sections x4 lithrotripsy (multiple), Ureteral stent Reports: Tubal ligation Family History Noncontributory Smoking History Former Smoker Social History Alcohol Use: "Social" Drug Use: Denies drug use Other Social History: Good social support, Local resident Occupation lives with partner, 02/04/2016 Ambulatory Status Independent Review of Systems Full Review of Systems Eyes: Denies: Blurred bilateral, Diplopia Ears / Nose / Throat: Denies: Sore throat Respiratory: Denies: Non-productive cough Cardiovascular: Denies: Chest pain, Edema GI: Denies: Diarrhea, Vomiting Female: Reports: Flank pain (L sided ), Denies: Vaginal bleeding - abnl, Vaginal discharge Skin: Denies Rash Complete sys rev & neg: except as marked. Physical Exam Vital Signs Vital Signs Date Time Temp Pulse Resp B/P Pulse Ox O2 Delivery O2 Flow Rate FiO2 12/23/16 05:44 36.4 66 16 156/87 97 Room Air 12/23/16 03:10 36.7 62 16 180/85 99 Room Air Initial VS: Reviewed General/Constitutional: Well-developed, Well-nourished Head / Eyes: Atraumatic, Normocephalic, PERRL ENT: Mucous membranes moist, Conjunctiva normal, No scleral icterus Neck: Supple, Non-tender, Full range of motion Respiratory: Breath sounds normal, Clear to auscultation, No respiratory distress Cardiovascular: Regular rate & rhythm, Heart sounds normal, Intact distal pulses Extremities: Vascular intact, Neuro intact, No swelling, No tenderness Skin: Warm, Dry, No cyanosis Neurologic: Alert, Oriented, Nonfocal Psychiatric: Mood/affect normal, Behavior normal, Normal thought content Back: Full range of motion L CVA tenderness Interpretation & Diagnostics Lab Results Interpretation Result Diagram: 12/23/16 0340 12/23/16 0340 Test 12/23/16 03:30 12/23/16 03:40 Urine Color Yellow (YELLOW) Urine Appearance Hazy (CLEAR,HAZY) Urine pH 5.5 (5.0-8.0) Urine Specific [place] 1.030 (1.003-1.035) Urine Protein 100mg/dL (NEG,TRACE) Urine Glucose (UA) Negativemg/dL (NEGATIVE) Urine Ketones Negativemg/dL (NEGATIVE) Urine Occult Blood Negative (NEGATIVE) Urine Nitrite Negative (NEGATIVE) Urine Bilirubin Negative (NEGATIVE) Urine Urobilinogen Normalmg/dL (NORMAL) Urine Leukocyte Esterase Trace (NEGATIVE) Urine RBC 0-2/hpf (0-2) Urine WBC 11-50/hpf (0-5) Urine Epithelial Cells Moderate/hpf (NONE-MOD) Urine Crystals (NONE SEEN) Urine Bacteria Moderate/hpf (NONE-FEW) Urine Hyaline Casts None/lpf (NONE) Urine Granular Casts None seen (NONE SEEN) Urine Waxy Casts None seen (NONE SEEN) Urine Red Blood Cell Casts None seen (NONE SEEN) Urine White Blood Cell Casts None seen (NONE SEEN) Urine Mucus Present (None Seen) Urine Trichomonas None seen (NONE SEEN) Urine Yeast None (NONE SEEN) Urinalysis Comment None Urine Culture Reflexed Indicated Hold Urine Received (Received) White Blood Count 7.5th/mm3 (3.8-10.1) Red Blood Count 5.09mil/mm3 (3.90-5.20) Hemoglobin 12.7g/dL (12.0-15.6) Hematocrit 39.5% (35.0-46.0) Mean Corpuscular Volume 77.6fL (81-100) Mean Corpuscular Hemoglobin 25.0pg (27.0-35.0) Mean Corpuscular Hemoglobin Concent 32.2% (32.0-37.0) Red Cell Distribution Width 26.2% (12.3-15.4) Platelet Count 308bil/L (150-400) Neutrophils (%) (Auto) 49.9% (40-74) Lymphocytes (%) (Auto) 35.8% (14-46) Monocytes (%) (Auto) 8.8% (4-12) Eosinophils (%) (Auto) 4.5% (0-5) Basophils (%) (Auto) 0.9% (0-3) Sodium Level 139mEq/L (134-144) Potassium Level 4.2mEq/L (3.5-5.2) Chloride Level 103mEq/L (97-108) Carbon Dioxide Level 24mmol/L (18-29) Blood Urea Nitrogen 21mg/dL (6-24) Creatinine 0.91mg/dL (0.57-1.00) Estimat Glomerular Filtration Rate 95mL/min (>59) Glucose Level 83mg/dL (60-99) Calcium Level 9.3mg/dL (8.5-10.1) Magnesium Level 1.9mg/dL (1.6-2.6) Total Bilirubin 0.2mg/dL (0.0-1.2) Aspartate Amino Transf (AST/SGOT) 37U/L (0-50) Alanine Aminotransferase (ALT/SGPT) 32U/L (0-32) Alkaline Phosphatase 76U/L (25-150) Total Protein 7.9g/dL (6.4-8.4) Albumin 4.3g/dL (3.4-5.0) Lipase 64U/L (13-60) Hold Sosa Top Tube Received (Received) Re-Eval/Medical Decision Med Decision/Clinical Course 46-year-old female was diagnosed with kidney stones without evidence of ureteral stones or hydronephrosis and a UTI. Evidently she has not had a chance to fill the antibiotics. She can now feel that she is getting some aching in her low back. Her urine is infected. Her labs are normal. She received IV Rocephin and felt better. Short course of [place] as a take home pack was provided for the flank pain. She did not fill the antibiotics today. She will follow-up with her primary care physician this week for urine culture result follow-up. Routine opiate warnings were given. Source of Hx: Old records Counseled Regarding: Diagnosis, Lab results, Need for follow-up, When/why to return to ED Discharge & Departure Primary Impression: Acute left flank pain Additional Impression: UTI (urinary tract infection) Urinary tract infection type: site unspecified Hematuria presence: without hematuria Qualified Code: N39.0 - Urinary tract infection, site not specified Disposition: Home Discharge Condition All VS Reviewed: Yes Condition: Stable Patient Instructions: Urinary Tract Infection in Women (ED) Additional Instructions: Finish your course of antibiotics. 1-2 [place] every 6 hours but do not drink alcohol or drive while taking them. Make an appointment to see your primary care provider sometime next week. Your blood pressure was also elevated here in the emergency department and you should have it rechecked when you see your primary care provider next week. Please return to the emergency department if you experience any new or worsening symptoms. I hope you feel better soon. Referrals: NOPCP (PCP) Kaylie Sethi MD Scribe Attestation Portions of this note were transcribed by Doyle Fajardo. I, Dr. Winkler personally performed the history, physical exam and medical decision-making; I reviewed and confirmed the accuracy of the information in the transcribed note. copies to: Kaylie Sethi MD, Todd P DO Dec 23, 2016 04:30 Doyle Fajardo Dec 23, 2016 04:47
[2016-12-23] MEDS ORDERED: _HYDROcodone/APAP 5-325 mg Tablet PO PRN (04:35)
[2016-12-23] MEDS ORDERED: HYDROcodone-APAP 5-325 mg Tablet PO ONE (04:35)
[2016-12-23] MEDS ORDERED: cefTRIAXone Inj 2,000 MG in Dextrose 5% Minibag Plus 50 ML IV ONE (04:35)
[2016-12-23 04:42] LABS: APPEARANCE,URINE HAZY (CLEAR,HAZY); COLOR,URINE YELLOW (YELLOW); PH,URINE 5.5 (5.0-8.0)
[2016-12-23 04:43] LABS: OCCULT BLOOD,URINE NEGATIVE (NEGATIVE); UROBILINOGEN,URINE NORMAL (NORMAL)
[2016-12-23 05:44] VITALS: BP 156/87; PULSE 66; RESP 16; O2SAT 97
== END 2016-12-23 05:50 | disposition home or self-care (01) ==
LOC: SED 03:05
DX: N39.0 Urinary tract infection, site not specified (principal); I10 Essential (primary) hypertension; Z87.440 Personal history of urinary (tract) infections; Z98.890 Other specified postprocedural states; Z87.891 Personal history of nicotine dependence; Z88.0 Allergy status to penicillin; Z88.1 Allergy status to other antibiotic agents
CPT/HCPCS: 36415; 80053; 81000; 81025; 83690; 83735; 85025; 87086; 87088; 96365; 96375; 99285; J0696; J1885